=== PATIENT | male | born 1985 | race Caucasian/White ===

== ENCOUNTER 2021-02-01 01:03 | Emergency (ER) | payer MEDICAID ==
[~2021-02-01] VITALS: Ht 167.6 cm; Wt 78.0 kg
[2021-02-01 01:15] VITALS: BP_SYST 18
--- NOTE | 2021-02-01 01:19 | NUR ---
Patient to ER bed 08 to gown for evaluation. Side rails up. Report given to SHASHI PARADA
--- NOTE | 2021-02-01 01:19 | NUR ---
PATIENT PRESENT TO THE ED COMPLAINING OF RIGHT LOWER EYELID HORDEOLUM X 6 DAYS WORSENING WITH PAIN 4/10. DENIES ANY BLURRED VISION. DENIES HISTORY ALLERGIES AND MEDICATION.
--- NOTE | 2021-02-01 01:21 | NUR ---
ER at bedside examining patient.
[2021-02-01] MEDS ORDERED: LIDOCAINE 1% 10 MG/ML, 20 ML MDV INJ ONE (01:30)
[2021-02-01] MEDS ORDERED: TETRACAINE HCL/PF 0.5% OPHTHALMIC DROPS 4 ML OP ONE (01:30)
[2021-02-01] MEDS ORDERED: DIPH-TET-PERTUS Vaccine 0.5 ML VIAL (ADACEL) I.M. ONE (01:30)
[2021-02-01] MEDS ORDERED: SULFAMETHOXAZOLE/TRIMETHOPR DS 1 TABLET PO ONE (01:30)
[2021-02-01] MEDS ORDERED: ERYTHROMYCIN BASE 0.5% EYE OINT...G. ONE (01:39)
[2021-02-01] MEDS ORDERED: ERYTHROMYCIN BASE 0.5% EYE OINT...G. OP ONE (01:45)
--- NOTE | 2021-02-01 01:56 | NUR ---
I&D Procedure done by Dr ASHWINI dahl using sterile technique. Lidocaine 1% used. MINIMAL amt of bleeding noted. Wound care discussed w/ patient. Pt tolerated procedure well.
[2021-02-01] MEDS ORDERED: CEPH500C2 PO (02:11)
[2021-02-01] MEDS ORDERED: SULF1TAB48 PO (02:11)
[2021-02-01] MEDS ORDERED: TORBREX OP (02:11)
[2021-02-01 02:20] VITALS: BP_SYST 118
--- NOTE | 2021-02-01 02:20 | NUR ---
Patient given written and verbal discharge instructions and verbalizes understanding. ER MD discussed with patient the results and treatment provided. Patient in stable condition. ID arm band removed. Rx of keflex, bactrim ds and tobrex given. Patient educated on pain management and to follow up with PMD. Pain Scale 0/10 Opportunity for questions provided and answered. Medication side effect fact sheet provided.
[2021-02-01] MEDS ORDERED: TOBRAMYCIN SULFATE 0.3% EYE DROPS 5 ML OP SCH (06:00)
== END 2021-02-01 02:20 | disposition home or self-care (01) ==
LOC: SED 01:03
DX: H00.012 Hordeolum externum right lower eyelid (principal)
CPT/HCPCS: 67700; 99284; J2001; 90715